=== PATIENT | male | born 2000 | race Caucasian/White ===

== ENCOUNTER 2025-03-10 16:10 | Emergency (ER) | payer SELFPAY ==
[~2025-03-10] VITALS: Ht 180.3 cm; Wt 68.0 kg
[2025-03-10 16:45] VITALS: PULSE 78; RESP 18; TEMP 98.9
[2025-03-10] MEDS ORDERED: BACTRIM DS TAB1 EACH PO (18:18)
[2025-03-10] MEDS ORDERED: CEPHALEXIN500 MG PO (18:18)
[2025-03-10 18:57] VITALS: BP 110/72; PULSE 74; RESP 18; TEMP 98.3; O2SAT 98
== END 2025-03-10 18:32 | disposition home or self-care (01) ==
LOC: ER 18:05
DX: L05.91 Pilonidal cyst without abscess (principal)
CPT/HCPCS: 99283